=== PATIENT | female | born 1990 ===

== ENCOUNTER 2017-12-13 20:15 | Outpatient (CLI) | payer OTHER ==
[2017-12-14] MEDS ORDERED: CEFADROXIL500 MG PO (07:41)
== END 2017-12-14 11:30 | disposition home or self-care (01) ==
LOC: OBS/DEL 20:15
DX: O26.893 Other specified pregnancy related conditions, third trimester (principal); R51 Headache; O60.03 Preterm labor without delivery, third trimester; O23.43 Unspecified infection of urinary tract in pregnancy, third trimester; Z34.03 Encounter for supervision of normal first pregnancy, third trimester

== ENCOUNTER 2018-01-15 13:30 | Inpatient (IN) | payer OTHER ==
[~2018-01-15] VITALS: Ht 167.6 cm; Wt 116.1 kg
[~2018-01-15 13:30] MED LIST: CEFADROXIL500 MG PO
[2018-01-21] MEDS ORDERED: PRENATAL TABLE1 EAC1 PO (08:38)
[2018-01-24] MEDS ORDERED: IBUPROFEN800 MG PO (06:48)
[2018-01-25] MEDS ORDERED: MIRALAX510 GM PO (07:41)
[2018-01-25] MEDS ORDERED: KETO10TA2 PO (07:41)
[2018-01-25] MEDS ORDERED: TUCKS1 EACH TOP (07:41)
== END 2018-01-24 11:00 | disposition home or self-care (01) | DRG 766 ==
LOC: LDR 01-21 05:10 → SURG-SUITE 01-21 19:53 → OB/GYN 01-29 13:30
PROVIDERS: Obstetrics & Gynecology
PROC: 4A033R1 Measurement of Arterial Saturation, Peripheral, Percutaneous Approach (ICD-10-PCS; 2018-01-21)
PROC: 3E033VJ Introduction of Other Hormone into Peripheral Vein, Percutaneous Approach (ICD-10-PCS; 2018-01-21)
PROC: 4A1HXCZ Monitoring of Products of Conception, Cardiac Rate, External Approach (ICD-10-PCS; 2018-01-21)
PROC: 10D00Z1 Extraction of Products of Conception, Low, Open Approach (ICD-10-PCS; principal; 2018-01-21 18:00)
DX: O61.0 Failed medical induction of labor (principal); Z3A.39 39 weeks gestation of pregnancy; Z37.0 Single live birth

== ENCOUNTER 2018-01-25 02:04 | Emergency (ER) | payer OTHER ==
[~2018-01-25] VITALS: Ht 167.6 cm; Wt 44.9 kg
[~2018-01-25 02:04] MED LIST changes: +IBUPROFEN800 MG PO; +PRENATAL TABLE1 EAC1 PO
[2018-01-25] MEDS ORDERED: KETO10TA2 PO (07:41)
[2018-01-25] MEDS ORDERED: TUCKS1 EACH TOP (07:41)
[2018-01-25] MEDS ORDERED: MIRALAX510 GM PO (07:41)
== END 2018-01-25 08:27 | disposition home or self-care (01) ==
LOC: ER 02:04
DX: K64.4 Residual hemorrhoidal skin tags (principal)